=== PATIENT | male | born 1980 | race Caucasian/White ===

== ENCOUNTER 2023-06-28 15:45 | Inpatient (IN) | payer OTHER ==
[2023-06-28 16:51] VITALS: BMI 32.9
[2023-06-28] MEDS ORDERED: IBUPROFEN 600 MG TABLET (FP) PO PRN (17:42)
[2023-06-28] MEDS ORDERED: guaiFENesin 600 MG TABLET.ER (FP) PO PRN (17:42)
[2023-06-28] MEDS ORDERED: POLYETHYLENE GLYCOL (HEALTHYLAX) 3350 17 GM PACKET PO PRN (17:42)
[2023-06-28] MEDS ORDERED: ONDANSETRON *ODT* 4 MG TABLET SL PRN (17:42)
[2023-06-28] MEDS ORDERED: ACETAMINOPHEN 325 MG TABLET (FP) PO PRN (17:42)
[2023-06-28] MEDS ORDERED: BENZONATATE 200 MG CAPSULE PO PRN (17:42)
[2023-06-28] MEDS ORDERED: NALOXONE HCL 0.4 MG/ML VIAL IM PRN (17:42)
[2023-06-28] MEDS ORDERED: MAG HYDROX/AL HYDROX/SIMETH 30 ML UNIT-DOSE CUP PO PRN (17:42)
[2023-06-28] MEDS ORDERED: BISMUTH SUBSALICYLATE 524 MG/30 ML PO PRN (17:42)
[2023-06-28] MEDS ORDERED: DICYCLOMINE HCL 10 MG CAPSULE PO PRN (17:42)
[2023-06-28] MEDS ORDERED: BENZOCAINE/MENTHOL (CHLORASEPTIC ) LOZENGE MM PRN (17:42)
[2023-06-28] MEDS ORDERED: LOPERAMIDE HCL 2 MG CAPSULE PO PRN (17:42)
[2023-06-28] MEDS ORDERED: NALOXONE HCL (KLOXXADO) 8 MG SPRAY NS PRN (17:42)
[2023-06-28] MEDS ORDERED: NICOTINE POLACRILEX 2 MG GUM BUC PRN (17:42)
[2023-06-28] MEDS ORDERED: MAGNESIUM HYDROX 2400MG/30ML ORAL SUSPENSION 30 ML CUP PO PRN (17:42)
[2023-06-28] MEDS ORDERED: P-EPHED 60MG/TRIPROLIDI 2.5MG TABLET PO PRN (17:42)
[2023-06-28] MEDS ORDERED: IBUPROFEN 400 MG TABLET (FP) PO PRN (17:42)
[2023-06-28] MEDS ORDERED: diazePAM 5 MG TABLET ONE (18:31)
[2023-06-28] MEDS: diazePAM 5 MG TABLET PO SCH (18:34)
[2023-06-28] MEDS: THIAMINE 100 MG TABLET PO SCH (22:30)
[2023-06-28] MEDS: MELATONIN 5 MG TABLETS PO SCH (22:30)
[2023-06-28] MEDS: METHOCARBAMOL 500 MG TABLET PO PRN (22:30)
[2023-06-29] MEDS: cloNIDine HCL 0.1 MG TABLET PO PRN (05:24)
[2023-06-29] MEDS: PRENATAL VITAMINS W/ FOLIC ACID TABLET (FP) PO SCH (10:15)
[2023-06-29] MEDS: methaDONE HCL 10 MG TABLET PO SCH (10:22)
[2023-06-29] MEDS: NICOTINE POLACRILEX 2 MG LOZENGE BC PRN (10:27)
[2023-06-29] MEDS: NICOTINE 21 MG/24 HOURS TOPICAL PATCH TD SCH (12:11)
[2023-06-29] MEDS: diazePAM 5 MG TABLET PO PRN (13:24)
[2023-06-29] MEDS: MIRTAZAPINE 30 MG TABLET PO SCH (23:18)
[2023-06-29] MEDS: ZIPRASIDONE 20 MG CAPSULE PO SCH (23:18)
[2023-06-30] MEDS: diazePAM 5 MG TABLET PO SCH (05:13)
[2023-06-30] MEDS: SERTRALINE HCL 50 MG TABLET (FP) PO SCH (10:01)
[2023-07-01] MEDS: diazePAM 5 MG TABLET PO SCH (05:28)
[2023-07-01] MEDS: diazePAM 5 MG TABLET PO ONE (22:19)
[2023-07-02] MEDS: diazePAM 5 MG TABLET PO ONE (05:41)
[2023-07-02 09:12] VITALS: BP 129/85; PULSE 77; RESP 18; TEMP 97.7
== END 2023-07-02 09:52 | disposition home or self-care (01) | DRG 773 ==
LOC: YASAS 15:45 → EDBD 18:32 → Y6N 18:32
PROVIDERS: ADMIT Allergy & Immunology; ATTEND Surgery
PROC: HZ2ZZZZ Detoxification Services for Substance Abuse Treatment (ICD-10-PCS; principal; 2023-06-28)
DX: F13.230 Sedative, hypnotic or anxiolytic dependence with withdrawal, uncomplicated (principal); F11.20 Opioid dependence, uncomplicated; F12.20 Cannabis dependence, uncomplicated; F17.210 Nicotine dependence, cigarettes, uncomplicated; F25.1 Schizoaffective disorder, depressive type; G62.9 Polyneuropathy, unspecified; I10 Essential (primary) hypertension; Z86.59 Personal history of other mental and behavioral disorders; Z59.00 Homelessness unspecified
CPT/HCPCS: 80305; 93005; 93010